=== PATIENT | male | born 1965 | race Caucasian/White ===

== ENCOUNTER → 2017-04-02 | Outpatient (CLI) | payer MEDICAID ==
[~2017-04-02] MED LIST: ALBUAER3 INH; DICL1GEL7 TOPICAL; LEXA5TAB PO; ONDA8TAB7 PO; OXYC1TAB35 PO; PROC10TA PO; XARE20TA PO
== END ==
LOC: HRSP 13:02
PROVIDERS: ATTEND Internal Medicine Sleep Medicine
DX: R06.09 Other forms of dyspnea (principal)
CPT/HCPCS: 94060; 94726; 94729